=== PATIENT | male | born 1980 | race Caucasian/White ===

== ENCOUNTER 2018-02-26 13:59 | Emergency (ER) | payer BC, SELFPAY ==
[2018-02-26 14:00] VITALS: BP 155/90; PULSE 103; RESP 18; TEMP 37.1; O2SAT 95; BMI 41.8
--- NOTE | 2018-02-26 14:33 | CT_ITS ---
STUDY: CT ABDOMEN AND PELVIS WITHOUT CONTRAST REASON FOR EXAM: Male, 38 years old. 3 day history of lower abdominal pain. RADIATION DOSAGE (If Supplied By Facility): CTDIvol = ( 22.80 ) mGy, DLP = ( 1150.61 ) mGycm TECHNIQUE: Transaxial images were obtained from the dome of the diaphragm to the symphysis pubis without oral contrast, and without intravenous contrast. Sagittal and coronal images were reconstructed. Individualized dose optimization techniques were used for this CT. COMPARISON: Comparison is made with prior study dated April 22, 2013. FINDINGS: The visualized lung bases are unremarkable. The visualized portions of the heart are within normal limits. There is decreased attenuation of the liver consistent with steatosis. Findings suggestive of sludge or tiny gallstones within the dependent portion of the gallbladder lumen. Normal spleen. Normal pancreas. Normal bilateral adrenal glands. Normal right kidney. Normal left kidney. There is a small hiatal hernia. Normal small intestine. There is diverticulosis, with thickening of the colon wall, and pericolonic inflammation changes consistent with acute diverticulitis. The appendix is visualized and appears normal. Normal abdominal aorta. Normal inferior vena cava. Normal retroperitoneum. Normal urinary bladder. There is a moderate-sized umbilical hernia containing fat. The fat within the hernia is of increased density just possible congestion. The neck of the hernia measures 2.2 cm. Clinical correlation is recommended. Small bilateral inguinal hernias containing fat. Marked degree of disc space narrowing with spondylosis at the L5-S1 level. CT/Abdomen/Pelvis without Cont IMPRESSION: Noncomplicated acute sigmoid diverticulitis. Moderate sized umbilical hernia containing fat with increased markings within the fat suggestive of possible congestion. Clinical correlation is recommended. Findings suggestive of small gallstones are sludge in the gallbladder lumen. Electronically Signed: Manuel Manzanares MD at 15:29 EDT Tel [phone], Service support ,
[2018-02-26 14:46] LABS: White Blood Cells 0 SEEN /hpf (0-5)
[2018-02-26 14:48] LABS: Color, Urine Yellow (Yellow); Glucose, Dipstick Normal (Normal); Leukocyte Esterase-Dipstick Negative /ul (Negative); Nitrite-Dipstick Negative (Negative); Occult Blood-Urine 25 /ul (Negative); Protein-Dipstick 15 mg/dl (Negative); Urine Bilirubin Dipstick Negative (Negative); Urine Clarity Sl. Cloudy (Clear); Urine Urobilinogen Normal (Normal)
[2018-02-26 14:54] LABS: Ketone-Dipstick 150 mg/dl (Negative); Red Blood Cells-Urine 0-5 SEEN /hpf (0-5); Squamous Epithelial Cells - UA 0-5 SEEN /hpf (0-5)
[2018-02-26 14:55] LABS: Bacteria RARE /hpf (None Seen); Mucous, Urine RARE /hpf (<or=2+)
[2018-02-26 14:55] LABS: Absolute Neutrophil Count 8.2 X10^3/uL (2.0-7.7); Basophil# 0.03 X10^3/uL; Basophil% 0.3 % (0-1); Differential Indicated SCAN CRITERIA MET; Eosinophil# 0.04 X10^3/uL; Eosinophils% 0.3 % (0-5); Hematocrit 43.3 % (40-54); Hemoglobin 14.7 g/dl (13.0-16.5); Lymphocyte % 13.8 % (19-41); Mean Corp Hgb Conc 33.9 g/gl (32-36); Mean Corpuscular Hgb 29.1 pg (27.0-32.0); Mean Corpuscular Volume 85.7 fL (80-94); Mean Platelet Vol. 9.8 fl (6.2-12.0); Monocyte% 14.7 % (0-10); Neutrophil # 8.18 X10^3/uL (2.7-7.7); Neutrophil % 70.5 % (47-70); POSITIVE COUNT NO; POSITIVE DIFFERENTIAL YES; POSITIVE MORPHOLOGY NO; Platelet Count 288 K/mm3 (150-450); RBC Distribution Width CV 12.7 % (11.6-14.6); RBC Distribution Width SD 39.5 fl (35.1-43.9); Red Blood Count 5.05 M/mm3 (4.6-6.2); White Blood Count 11.6 K/mm3 (4.4-11.0)
[2018-02-26] MEDS: 0.9% Normal Saline 1,000 ML 1000 ML IV (15:02)
[2018-02-26 15:07] LABS: Anion Gap 5 (5-15); BUN 17 mg/dL (7-18); Chloride 102 mmol/L (98-107); Creatinine, Serum 1.06 mg/dL (0.70-1.30); EST Glomerular Filtration Rate 83 mL/min (>60); Est Glom Filt Rate - Afr Amer 100 mL/min (>60); Estimated Creatinine Clearance 99.65 ml/min; Glucose 87 mg/dL (74-106); Potassium 4.3 mmol/L (3.5-5.1); Sodium Level 135 mmol/L (136-145)
--- NOTE | 2018-02-26 15:38 | ED.DCSUM_ITS ---
- ER Visit Summary Date of Service: 02/26/18 Chief Complaint: Abdominal pain History of Present Illness: The patient is a 38 M with no primary care physician. He reports that he has lower abdominal pain began 2 days ago. Is gradually gotten worse. It is an aching, dull pain is 7 out of 10 at worst and 3 out of 10 currently. Is worsened by nothing. Is relieved by having a bowel movement. He denies any associated nausea, vomiting, or diarrhea. He reports his last bowel movement was 3 days ago. He reports that since then he is only passed juliano and snotty stuff. Physical Examination: Vitals: Stable. Afebrile. General: Well-nourished and well-developed. Head: Normocephalic atraumatic. Neck: Supple, no lymphadenopathy. No JVD. Nontender. Cardiovascular: Regular rate and rhythm. No murmurs. Respiratory: No respiratory distress. Clear to auscultation bilaterally. Abdominal: Soft, mild tenderness palpation is diffuse over the lower abdomen. No point tenderness, nondistended, normal bowel sounds. No guarding, rebound, or peritoneal signs. Back: Nontender. Extremities: Nontender, no edema. Skin: Normal color, no rash. Neurologic: Alert and oriented ?3. Cranial nerves II through XII are intact. Normal strength and sensation. Psych: Normal affect. Test Results: CBC is marked for white count 11.6 with 71 segmented neutrophils, 14 lymphocytes, and 15 monocytes. Chem-7 is more for sodium 135. UA is negative. Clinical Impression(s) from Imaging Studies Abdomen/Pelvis CT 02/26/18 14:33 IMPRESSION: Noncomplicated acute sigmoid diverticulitis. Moderate sized umbilical hernia containing fat with increased markings within the fat suggestive of possible congestion. Clinical correlation is recommended. Findings suggestive of small gallstones are sludge in the gallbladder lumen. Electronically Signed: Manuel Manzanares MD at 15:29 EDT Tel [phone], Service support , Emergency Department Course and Treatment: Patient refused pain medications. He was treated with Cipro and Flagyl p.o. Treatment Plan: Patient will be discharged with Cipro, Flagyl, [place]. Instruct ed to follow-up Dr. Brito in 1 week for another exam. Return to the emergency department for any worsening symptoms. Disposition: To home in improved and stable condition. Impression: 1. Diverticulitis. This note was generated with [employer] dictation software. It may contain incorrect words, spelling, and punctuation that were not noted in review of the chart prior to signing ED Disposition - Plan for ED Patient: Disposition: Home or Assisted Living Chief Complaint: Abd Pain Instructions: ED Diverticulitis Prescriptions: Hydrocodone Bitart/Apap 5-325 [[place] 5MG-325MG] 1 tablet PO Q4H PRN PRN 2 Days #10 tablet PRN Reason: Pain Ciprofloxacin [Cipro] 500 mg PO BID #20 tablet Metronidazole [Flagyl] 500 mg PO Q6H #40 tablet Referrals: Delbert Brito DO [NON CLINICAL AFFILIATE] - 1 Week
[2018-02-26] MEDS: metroNIDAZOLE 500 MG Tablet PO (15:46)
[2018-02-26] MEDS: Ciprofloxacin 500 MG Tablet PO (15:46)
[2018-02-26 15:48] VITALS: BP 147/84; PULSE 91; RESP 17; O2SAT 97
--- NOTE | 2018-02-26 15:48 | ED.RN ---
IV DC'ED, CATHETER INTACT, SMALL GAUZE DRESSING PLACED. DISCHARGE INSTRUCTIONS GIVEN TO AND REVIEWED WITH PATIENT, PATIENT DENIES QUESTIONS OR CONCERNS AND VOICES UNDERSTANDING OF DISCHARGE INSTRUCTIONS. PT AMBULATES OUT OF ROOM WITHOUT DIFFICULTY.
== END 2018-02-26 15:49 | disposition home or self-care (01) ==
PROVIDERS: Emergency Provider Emergency Medicine
DX: K57.32 Diverticulitis of large intestine without perforation or abscess without bleeding (principal)
CPT/HCPCS: 74176; 80048; 81001; 85025; 96360; 99284; J7030; A4216

== ENCOUNTER 2019-05-07 09:29 | Emergency (ER) | payer BC, SELFPAY ==
[2019-05-07 09:30] VITALS: BP 152/80; PULSE 69; RESP 17; TEMP 36.7; O2SAT 96; BMI 40.6
--- NOTE | 2019-05-07 09:45 | ED.DCSUM_ITS ---
History of Present Illness Chief Complaint: Edema Informant: Patient Onset: Yesterday Narrative: Patient states that yesterday afternoon around 1630 hrs. he noticed that his left lower lip was swollen. He had had a family function and everybody brought dishes but it was not anything that had not eaten before. He iced it. It did not really change. When he woke this morning he noticed that it seemed a bit better but that the left side of his tongue was swollen. He denies any pain with swallowing breathing and he denies any recent infections. No fevers or rashes. No known exposures. he does not take any prescription medications. He went to urgent care and was referred to the emergency department. Past Medical History - Allergies and Home Meds Allergies/Adverse Reactions: Allergies No Known Allergies Allergy (Verified 05/07/19 09:29) Primary Care Physician: Care Physician,No Primary [Primary Care Provider] - Surgical History: - - Tongue surgery in childhood Smoking Status: Former smoker Review of Systems General: Denies: Chills, Fever, Sweats Eyes: Denies: Visual changes - bilaterally, Diplopia ENT: Reports: - - See history of present illness. Denies: Bilateral ear pain, Left ear pain, Right ear pain, Rhinorrhea, Sore throat Cardiovascular: Denies: Chest pain, Palpitations Respiratory: Denies: Dyspnea, Cough, Dyspnea on exertion Gastrointestinal: Denies: Abdominal pain, Nausea, Vomiting, Diarrhea, Melena, Hematochezia Genitourinary: Denies: Dysuria, Hematuria, Frequency Musculoskeletal: Denies: Neck pain, Back pain, Extremity Pain Skin: Denies: Rash, Abscess, Abrasions, Wounds Neurological: Denies: Headache, Weakness, Numbness Psych: Denies: Depression, Anxiety, Suicidal thoughts, Suicidal ideations Endocrine: Denies: Polyuria, Polydipsia, Heat intolerance, Cold intolerance Hematologic: Denies: Easy bruising, Easy bleeding, Lymphadenopathy Allergy: Reports: Swelling of the mouth, Swelling of the tongue. Denies: Uticaria Physical Exam Vital Signs/Narrative: Vital Signs Temp Pulse Resp BP Pulse Ox 05/07/19 09:30 98.1 F 69 17 152/80 H 96 General: Well nourished, Well developed, No Acute Distress, - - he is laying back at a 45 degree angle. He is handling his secretions. There is no stridor. Head: Normocephalic, Atraumatic Eyes: Perrl, EOMI ENT: Moist mucous membranes, No rhinorrhea, - - The left lower lip does appear slightly edematous. The left aspect of his tongue is swollen. There appears to be some tonsillar swelling but no exudate or erythema. Neck: Supple, Nontender Cardiovascular: Regular rate, Regular rhythm, No murmurs Respiratory: No distress, CTA bilaterally, Chest nontender Abdomen: Soft, Nontender, Nondistended, Normal bowel sounds Back: Nontender, Normal Inspection Extremities: Nontender, No edema Skin: Normal color, No rash Neurological: Alert, Oriented x3, Cranial nerves II-XII grossly intact, Normal Strength, Normal Sensation Psychological: Normal affect, Normal Mood Diagnostic/Tx/Re-eval - Medical Decision Making IV was established and the patient was placed on the monitor. He received Solu- Medrol, Benadryl, and Pepcid. He was observed. Patient has had significant improvement in his symptoms. He will be discharged home with return instructions as well as prescription for Benadryl Pepcid and Benadryl. ED Disposition - Plan for ED Patient: Disposition: Home or Assisted Living Diagnosis: Angioedema Instructions: ED Angioedema Prescriptions: Prednisone [Deltasone] 60 mg PO DAILY #12 tab Prescription Printed Famotidine [Pepcid] 20 mg PO BID #6 tab Prescription Printed Referrals: Ric Larson MD [STAFF PHYSICIAN] - As Needed Additional Instructions: Benadryl 25 mg every 6 hours for the next 2 days
[2019-05-07] MEDS: DiphenhydrAMINE 50 MG/ML Syringe IV (09:59)
[2019-05-07] MEDS: MethylPREDNISolone 125 MG/2 ML Vial IV (09:59)
[2019-05-07] MEDS: Famotidine 200 MG/20 ML MDV 20 MG in 0.9% Normal Saline (Pres. free 8 ML 300 MG IV (10:02)
[2019-05-07 13:05] VITALS: RESP 16
[2019-05-07 13:43] VITALS: BP 131/74; PULSE 59; RESP 16; O2SAT 95
== END 2019-05-07 13:46 | disposition home or self-care (01) ==
PROVIDERS: Emergency Provider Emergency Medicine
DX: T78.3XXA Angioneurotic edema, initial encounter (principal); Z87.891 Personal history of nicotine dependence
CPT/HCPCS: 96374; 96375; 99284; A4216; J3490